=== PATIENT | male | born 1955 | race Caucasian/White ===

== ENCOUNTER 2022-01-31 16:22 | Emergency (ER) | payer OTHER, MEDICARE, SELFPAY ==
[2022-01-31 16:25] VITALS: BP 151/94; PULSE 76; RESP 18; TEMP 36.9; O2SAT 97
--- NOTE | 2022-01-31 16:41 | ED.WOUNDLAC ---
HPI - Wound/Laceration General Stated Complaint: finger laceration Time Seen by Provider: 01/31/22 16:41 Source: patient Mode of arrival: ambulatory Limitations: no limitations History of Present Illness HPI narrative: patient presents with an avulsion injury to his left 5th finger after using saw and the blade of the [place] cut his left 5th finger the distal end tip taking off part of his nail and leaving an avulsion injury. Otherwise has good range of motion no numbness or tingling. Patient is up-to-date with his tetanus Onset (ago): hour(s) Place: home Patient tetanus UTD: Yes Context: accidental Associated symptoms: none Review of Systems Review of Systems: All systems reviewed & are unremarkable except as noted in HPI and below PMFSH Past Medical History Medical History Patient denies medical problems Exam Const: General: healthy appearing and no acute distress HENMT: Head: normal to inspection Mouth: Yes Normal oral and palatal mucosa present Eyes: Conjunctivae: conjunctivae normal Neck: Neck: normal visual inspection, no lymphadenopathy and no meningeal signs Chest: Chest palpation & inspection: normal inspection of the chest Resp: Effort & Inspection: normal respiratory effort Cardio: Rate: regular rate GI: GI Palp: Yes Soft to palpation Skin: Wounds: wounds noted Other: avulsion injury distal end of his left 5th finger that affected part of his nail Neuro: General: patient oriented x3 and moves all extremities Psych: Mental Status: mental status grossly normal Affect: normal affect Course Course Emergency Course: wound was evaluated and there was no debris was cleaned and Dermabond was placed on the area the distal end of his left 5th finger. Procedures Laceration Laceration 1: Date: 01/31/22 Time: 16:46 Site: hand Side (If applicable): left Size (cm): 2 Description: other ( avulsion injury) Pre-repair: wound explored and irrigated extensively ====== Skin Level ====== Skin layer closed with: dermabond ====== Subcutaneous Layer ====== ====== Muscle Layer ====== ====== Tendon Layer ====== Critical Care Time Critical Care Time Critical Care Time: No Discharge Plan Discharge Clinical Impression: Laceration Patient Disposition: Home, Self-Care Condition: Stable Instructions: Antibiotic Form Additional Instructions: follow-up with primary care physician if symptoms persist or worsen. Follow-up/Referrals: UNKNOWN,DOCTOR [Primary Care Provider] - Time of Disposition: 16:48
[2022-01-31 17:04] VITALS: BP 151/94; PULSE 76; RESP 20; TEMP 36.3; O2SAT 97
== END 2022-01-31 17:05 | disposition home or self-care (01) ==
PROVIDERS: Emergency Provider Emergency Medicine
DX: S61.217A Laceration without foreign body of left little finger without damage to nail, initial encounter (principal); W27.0XXA Contact with workbench tool, initial encounter
CPT/HCPCS: 12001; 99282